=== PATIENT | female | born 1980 | race Caucasian/White ===

== ENCOUNTER 2017-03-28 13:58 | Emergency (ER) | payer BC ==
[~2017-03-28] VITALS: Ht 162.6 cm; Wt 59.0 kg
[~2017-03-28 13:58] MED LIST: ACET325T9 PO; IBUP200T43 PO; RANI150C PO
[2017-03-28 14:10] VITALS: BP 120/73
[2017-03-28 14:55] LABS: COLOR,URINE YELLOW
[2017-03-28 14:56] LABS: BILIRUBIN,URINE NEG (NEG); CLARITY,URINE CLEAR; GLUCOSE,URINE NEG (NEG); NITRITE,URINE NEG (NEG); UROBILINOGEN,URINE 0.2 mg/dL (0.2 mg/dL)
[2017-03-28] MEDS ORDERED: NAPR500T PO (15:03)
[2017-03-28] MEDS ORDERED: HYDR-971 PO (15:03)
--- NOTE | 2017-03-28 15:07 | PHYS DOC ---
General Chief Complaint: ABDOMINAL PAIN Stated Complaint: LEFT ABD PAIN Time Seen by MD: 15:02 Source: patient Exam Limitations: no limitations Problems: History of Present Illness Initial Comments Pt is 36/F to ED c/o L lower abdominal pain. Pt states left lower abdominal pain worsening over past week or so. Today at work pain severe, pt left work to come for evaluation. No strenuous activity or workouts that could be causative, no n/v/fever/chills/urine or vaginal symptoms. Last BM today "normal" pt states bowels have been wnl. No prearrival treatment, LMP "beginning of this month" sexually active monogamous. No prearrival treatment, pt follows with Dr Lu OIL EXTRACTOR. Last [employer] [facility] eval at least 3 years ago no h/o abnormal Pap/STI. FH ovarian cancer (diagnosed in their 20's) pt denies unexplained weight loss/abnormal menses/night sweats. Timing/Duration: 1 week, getting worse Severity: moderate Modifying Factors: worse with movement, improves with rest Associated Symptoms: other Allergies: Coded Allergies: morphine (Verified Allergy, Intermediate, hives, 03/28/17) Past Medical History Medical History: no pertinent history, other Surgical History: cholecystectomy (CS), other Family History Significant Family History: no pertinent family hx Social History Smoker: cigarettes Alcohol: occasionally Drugs: none Review of Systems Constitutional: denies chills, denies fever, denies malaise Respiratory: denies cough, denies shortness of breath Cardiovascular: denies chest pain, denies palpitations Gastrointestinal: see HPI Genitourinary: see HPI Musculoskeletal: denies back pain, denies joint swelling, denies neck pain Psychiatric/Neurological: denies headache, denies numbness, denies paresthesia Physical Exam General Appearance: WD/WN, no apparent distress Eyes: bilateral eye normal inspection, bilateral eye PERRL, bilateral eye EOMI Ear, Nose, Throat: hearing grossly normal, normal ENT inspection, normal pharynx Neck: non-tender, supple Respiratory: normal breath sounds, no respiratory distress Cardiovascular: normal peripheral pulses, regular rate, rhythm Gastrointestinal: normal bowel sounds, soft (L adnexa TTP no r/g/mass palpated) , no organomegaly Rectal: deferred Back: no CVA tenderness, no vertebral tenderness Extremities: non-tender, normal inspection 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 I discussed US evaluation in depth with pt. She understands it can be a few hours until results received. Pt requests discharge with symptomatic treatment , states she is established with Dr Lu and will follow up next available. She agrees to return with new/changing symptoms. Advised to stop smoking. Departure Time of Disposition: 15:04 Disposition: 01 HOME, SELF-CARE Diagnosis: left adnexa pain probable ovarian cyst Condition: STABLE Patient Instructions: Ovarian Cyst, [id number] Additional Instructions: Off work today. Rest, no strenuous activity. As discussed, ultrasound may further evaluate your symptoms. With time constraints in mind, you have chosen to defer US evaluation at this time and go home with symptomatic treatment. Return to ED if you change your mind. Call today to schedule follow up appointment with your OIL EXTRACTOR Dr Lu. Rx: norco 5mg #20, naprosyn Return with new or changing symptoms. LEXI BELLA DO March 28, 2017 15:07
== END 2017-03-28 15:10 | disposition home or self-care (01) ==
LOC: ER 13:58
DX: R10.2 Pelvic and perineal pain (principal); F17.210 Nicotine dependence, cigarettes, uncomplicated; Z88.5 Allergy status to narcotic agent
CPT/HCPCS: 81003; 81025; 84703; 99283

== ENCOUNTER 2017-04-24 15:11 | Emergency (ER) | payer BC ==
[~2017-04-24] VITALS: Ht 162.6 cm; Wt 59.0 kg
[~2017-04-24 15:11] MED LIST changes: +HYDR-971 PO; +NAPR500T PO
--- NOTE | 2017-04-24 15:36 | PHYS DOC ---
General Chief Complaint: ABDOMINAL PAIN Stated Complaint: LOWER ABDOMINAL PAIN Time Seen by MD: 15:21 Source: patient Exam Limitations: no limitations Problems: History of Present Illness Initial Comments Patient is a 36-year-old female who comes the ED with her left adnexal pain. Patient was seen in this ED by me on March 28 for the same symptoms. On that day she deferred further evaluation and I referred her to her PRODUCTION LABORER Dr. Lu. She says she saw Dr. Lu yesterday and underwent transvaginal ultrasound for which results are pending. Patient has a follow-up appointment with Dr. Lu Friday of next week. Patient states today her left adnexal pain had worsened. She says after she saw me and before she got it with OB her symptoms had settled down and she wasn't hurting daily. She feels like the ultrasound evaluation may have irritated her already present symptoms. She denies any new or worse symptoms she has a left adnexal discomfort moderate to severe as well as dyspareunia at times. No vaginal discharge no urinary or bowel symptoms. She called her OBs office earlier today but was told that there was out of town until Friday. She was advised to follow-up to the ED for pain medications to get her through the weekend. Timing/Duration: 24 hours Severity: moderate Modifying Factors: improves with other Associated Symptoms: other Allergies: Coded Allergies: morphine (Verified Allergy, Intermediate, hives, 03/28/17) Past Medical History Medical History: no pertinent history, other Surgical History: cholecystectomy, other Family History Significant Family History: no pertinent family hx Review of Systems Constitutional: denies chills, denies diaphoresis, denies fever, denies malaise Respiratory: denies cough, denies shortness of breath, denies wheezing Cardiovascular: denies chest pain, denies palpitations, denies syncope Gastrointestinal: see HPI, denies constipation, denies diarrhea, denies nausea , denies vomiting Genitourinary: see HPI Musculoskeletal: denies back pain, denies joint swelling, denies neck pain Psychiatric/Neurological: denies headache, denies numbness, denies paresthesia Hematologic/Lymphatic: denies blood clots, denies easy bleeding, denies easy bruising Physical Exam General Appearance: WD/WN, no apparent distress Ear, Nose, Throat: hearing grossly normal, normal ENT inspection, normal pharynx Neck: non-tender, supple Respiratory: normal breath sounds, no respiratory distress Cardiovascular: normal peripheral pulses, regular rate, rhythm Gastrointestinal: normal bowel sounds, soft (nondistended, mild suprapubic and left lower quadrant/adnexal tenderness without rebound guarding or palpable mass. 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 She has no new or worse symptoms above prior baselines. She is requesting a pain medication option to get her by until she follows up with PRODUCTION LABORER on Friday. I discussed the treatment plan she expressed agreement and understanding of same. She agrees to return to the ED with new or changing symptoms. Departure Time of Disposition: 15:33 Disposition: HOME, SELF-CARE Diagnosis: pelvic pain Condition: STABLE Patient Instructions: Pelvic Pain, Female, [id number] Additional Instructions: Keep activity to "pain free". [id number] ibuprofen or Naprosyn as needed for baseline pain control. Pelvic rest until follow-up with your doctor. Prescription: [place] 5 mg #20, take with food as directed. Follow-up with Dr Lu this Friday as scheduled. Return to the ED were new or changing symptoms. LEXI BELLA DO Apr 24, 2017 15:36
[2017-04-24 15:44] VITALS: BP 110/74
== END 2017-04-24 15:39 | disposition home or self-care (01) ==
LOC: ER 15:11
DX: R10.2 Pelvic and perineal pain (principal); N94.10 Unspecified dyspareunia; Z90.49 Acquired absence of other specified parts of digestive tract; Z88.5 Allergy status to narcotic agent
CPT/HCPCS: 99283

== ENCOUNTER 2017-05-31 19:12 | Emergency (ER) | payer BC ==
[~2017-05-31] VITALS: Ht 162.6 cm; Wt 59.0 kg
[2017-05-31 19:15] VITALS: BP 121/78
--- NOTE | 2017-05-31 19:49 | PHYS DOC ---
General Chief Complaint: ABDOMINAL PAIN Stated Complaint: PAIN ON URINATION Time Seen by MD: 19:23 Source: patient Exam Limitations: no limitations Problems: History of Present Illness Initial Comments Patient is a 36-year-old female who comes to the ED complaining of dysuria. Patient states that for the past 2 days she's had suprapubic discomfort with frequency and hesitancy of urine. She says today her symptoms worsened, "feels like I'm peeing razor blades." She's had some mild nausea no vomiting no bowel changes she's had no fever chills diaphoresis or myalgias. No pre-arrival treatment she is concerned she may have a urinary tract infection. Patient states she had a hysterectomy on May 22 at [facility] Dr. Lu was LAMINATOR HAND. She's been healing well since the procedure until the last few days with her abdominal and urinary symptoms. ED vital signs: 98.9, 88, 121/78, 20, 98% room air Timing/Duration: yesterday Severity/Quality: severe, burning Location: urethral Radiation: suprapubic Activities at Onset: other Prior Genitourinary Problems: similar symptoms Sexual [place] History: less than 2 months ago, single partner Modifying Factors: worse with urinating Associated Symptoms: abdominal pain, dysuria, nausea/vomiting, polyuria, urinary frequency Allergies: Coded Allergies: morphine (Verified Allergy, Intermediate, hives, 03/28/17) Past Medical History Medical History: no pertinent history Surgical History: other (, tubal ligation, hysterectomy per history of present illness) Family History Significant Family History: no pertinent family hx Social History Smoker: cigarettes Alcohol: occasionally Drugs: marijuana Review of Systems Constitutional: denies chills, denies diaphoresis, denies fever, malaise Respiratory: denies cough, denies shortness of breath, denies wheezing Cardiovascular: denies chest pain, denies palpitations, denies syncope Gastrointestinal: abdominal pain, denies diarrhea, nausea, denies vomiting Genitourinary: see HPI Musculoskeletal: denies back pain, denies joint swelling, denies neck pain Psychiatric/Neurological: denies headache, denies numbness, denies paresthesia Physical Exam General Appearance: WD/WN, no apparent distress HEENT: normal ENT inspection Neck: non-tender, supple Cardiovascular/Respiratory: normal peripheral pulses, no respiratory distress Gastrointestinal: soft (nondistended, mild suprapubic tenderness no rebound guarding or masses, there is bruising consistent with laparoscopic port trauma at bilateral lower quadrants no palpable subcutaneous hematoma noted. 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 I discussed the treatment plan I recommended smoking cessation. She expressed agreement and understanding. Departure Time of Disposition: 19:48 Disposition: 01 HOME, SELF-CARE Diagnosis: UTI Condition: GOOD Patient Instructions: Urinary Tract Infection, [id number] Additional Instructions: Rest, no strenuous activity. Aggressive hydration with gatorade, water. OTC tylenol/ibuprofen as needed. Rx: bactrim ds, pyridium, zofran odt Follow up with your doctor in 3-5 days for recheck and urine culture results. Return to ED with new or changing symptoms. LEXI BELLA DO May 31, 2017 19:49
[2017-05-31 19:51] LABS: CLARITY,URINE CLOUDY; COLOR,URINE YELLOW
[2017-05-31 19:52] LABS: BILIRUBIN,URINE NEG (NEG); GLUCOSE,URINE NEG (NEG); NITRITE,URINE NEG (NEG); UROBILINOGEN,URINE 1 mg/dL (0.2 mg/dL)
[2017-05-31 19:59] LABS: BACTERIA,URINE MOD /HPF (0-FEW); SQUAMOUS EPITHELIAL CELL,UR MOD /LPF; WBC,URINE 20-40 /HPF (0-4)
[2017-05-31] MEDS ORDERED: PHENAZOPYRIDINE 100 MG TABLET. PO ONE (20:00)
[2017-05-31] MEDS ORDERED: ONDANSETRON ODT 4 MG TAB.RAPDIS PO ONE (20:00)
[2017-05-31] MEDS ORDERED: ONDANSETRON 4MG ODT 4TABLET STARTPACK. PO ONE (20:00)
[2017-05-31] MEDS ORDERED: SMZ/TMP 800/160MG TABLET. PO ONE (20:00)
== END 2017-05-31 20:01 | disposition home or self-care (01) ==
LOC: ER 19:12
DX: N39.0 Urinary tract infection, site not specified (principal); F17.210 Nicotine dependence, cigarettes, uncomplicated; F12.10 Cannabis abuse, uncomplicated; Z90.710 Acquired absence of both cervix and uterus; Z98.51 Tubal ligation status; Z98.890 Other specified postprocedural states; Z88.5 Allergy status to narcotic agent
CPT/HCPCS: 81001; 87086; 99284; Q0162